=== PATIENT | male | born 1990 | race African-American/Black ===

== ENCOUNTER 2017-05-30 20:34 | Emergency (ER) | payer OTHER ==
--- NOTE | ~2017-05-30 | CR229 ---
[facility] A Service of [facility] & [facility] RADIOLOGY TEXT RESULTS PATIENT: PAWEL WHITTAKER LOCATION: [facility] : [birth year] UNIT #: [id number] AGE: [address]: MIRANDA TABOR SEX: M ORDER DR: [id number] [facility] [address] [place], [place] [address] [id number] E MR#: [id number] Acc #: [id number] NAME: PAWEL WHITTAKER : 1990 SEX: M STUDY DATE/TIME: 05/30/2017 22:10 UNIT: [facility] ROOM: STUDY DESCRIPTION: CR Shoulder Min 2 View Lt Attending Physician: Miranda Tabor Aprn Ordering Physician: Miranda Tabor Aprn Primary Care Physician: Primary Care Physician No MEDICAL IMAGING REPORT This report is preliminary unless electronic signature is present EXAM Left shoulder, 05/30 at 22:10 INDICATIONS Shoulder pain that started yesterday. FINDINGS Three views of the left shoulder were obtained. There is no fracture or dislocation. There is no AC joint separation. IMPRESSION Normal left shoulder. Dictated by... Gomez Lee Jr., M.D. THIS IS AN ELECTRONICALLY VERIFIED REPORT Gomez Lee Jr., M.D. at 06/01/2017 3:11 AM NAVJOT/pradeep TD: 05/31/2017 19:37 JOB #: [id number] MEDICAL IMAGING REPORT Page 1 of 1 COPY
--- NOTE | ~2017-05-30 | CR63 ---
[facility] A Service of [facility] & [facility] RADIOLOGY TEXT RESULTS PATIENT: PAWEL WHITTAKER LOCATION: [facility] : [birth year] UNIT #: [id number] AGE: [address]: MIRANDA TABOR SEX: M ORDER DR: [id number] [facility] [address] [place], [place] [address] [id number] E MR#: [id number] Acc #: [id number] NAME: PAWEL WHITTAKER : 1990 SEX: M STUDY DATE/TIME: 05/30/2017 22:10 UNIT: [facility] ROOM: STUDY DESCRIPTION: CR Chest 2 View Attending Physician: Miranda Tabor Aprn Ordering Physician: Miranda Tabor Aprn Primary Care Physician: Primary Care Physician No MEDICAL IMAGING REPORT This report is preliminary unless electronic signature is present EXAM Two-view chest INDICATIONS Trauma. Chest pain. FINDINGS PA and lateral views of the chest without comparison. The heart and mediastinal contours are normal. Lungs are clear. No pleural effusion. IMPRESSION No acute cardiopulmonary findings. Dictated by... Eusebio Murphy M.D. THIS IS AN ELECTRONICALLY VERIFIED REPORT Eusebio Murphy M.D. at 05/31/2017 7:52 PM C/pradeep TD: 05/31/2017 19:36 JOB #: [id number] MEDICAL IMAGING REPORT Page 1 of 1 COPY
--- NOTE | ~2017-05-30 | CR58 ---
[facility] A Service of [facility] & [facility] RADIOLOGY TEXT RESULTS PATIENT: PAWEL WHITTAKER LOCATION: [facility] : [birth year] UNIT #: [id number] AGE: [address]: MIRANDA TABOR SEX: M ORDER DR: [id number] [facility] [address] [place], [place] [address] [id number] E MR#: [id number] Acc #: [id number] NAME: PAWEL WHITTAKER : 1990 SEX: M STUDY DATE/TIME: 05/30/2017 22:06 UNIT: [facility] ROOM: STUDY DESCRIPTION: CR Cervical Spine 2 or 3 Views Attending Physician: Miranda Tabor Aprn Ordering Physician: Miranda Tabor Aprn Primary Care Physician: No Primary Care Physician MEDICAL IMAGING REPORT This report is preliminary unless electronic signature is present EXAM Cervical spine. INDICATION Trauma. Neck pain. FINDINGS Three views of the cervical spine without comparison. There is no acute fracture or subluxation. Vertebral body height and alignment is within normal limits. Prevertebral soft tissues are normal. IMPRESSION No acute cardiopulmonary findings. Dictated by... Eusebio Murphy M.D. THIS IS AN ELECTRONICALLY VERIFIED REPORT Eusebio Murpyh M.D. at 05/31/2017 7:52 PM YANICK/nicole TD: 05/31/2017 19:26 JOB #: [id number] MEDICAL IMAGING REPORT Page 1 of 1 COPY
== END 2017-05-31 03:30 | disposition home or self-care (01) ==
LOC: CED 20:34
DX: S13.4XXA Sprain of ligaments of cervical spine, initial encounter (principal); S46.912A Strain of unspecified muscle, fascia and tendon at shoulder and upper arm level, left arm, initial encounter; V43.52XA Car driver injured in collision with other type car in traffic accident, initial encounter; Y92.410 Unspecified street and highway as the place of occurrence of the external cause; Z23 Encounter for immunization
CPT/HCPCS: 71020; 72040; 73030; 90471; 90715; 99283